=== PATIENT | female | born 1975 | race Caucasian/White ===

== ENCOUNTER 2022-08-13 16:54 | Emergency (ER) | payer OTHER ==
[~2022-08-13] VITALS: Ht 157.4 cm; Wt 83.9 kg
[2022-08-13] MEDS ORDERED: Synthroid,Levo25 MCG PO (17:49)
== END 2022-08-13 20:17 | disposition home or self-care (01) ==
LOC: ED 16:54
DX: S06.9X0A Unspecified intracranial injury without loss of consciousness, initial encounter (principal); Z88.1 Allergy status to other antibiotic agents; Z91.041 Radiographic dye allergy status; Z88.8 Allergy status to other drugs, medicaments and biological substances; Z98.890 Other specified postprocedural states; X58.XXXA Exposure to other specified factors, initial encounter; Y93.89 Activity, other specified; Y92.89 Other specified places as the place of occurrence of the external cause; Y99.8 Other external cause status